=== PATIENT | female | born 1945 ===

== ENCOUNTER 2024-02-16 07:56 | Day surgery (SDC) | payer MEDICARE, BC ==
[2024-02-15 10:14] VITALS: BMI 38.9
[2024-02-16] MEDS ORDERED: Diazepam 5 MG TAB ONE (08:23)
[2024-02-16] MEDS ORDERED: Aspirin 325 MG TAB ONE (08:24)
[2024-02-16 08:41] VITALS: BP 181/81; TEMP 97.8
[2024-02-16] MEDS ORDERED: Verapamil 5 MG/2 ML VIAL ONE (09:53)
[2024-02-16] MEDS ORDERED: fentaNYL 50 mcg/mL 1 mL Vial ONE (09:53)
[2024-02-16] MEDS ORDERED: Lidocaine 1% (PF) 30 ML VIAL ONE (09:53)
[2024-02-16] MEDS ORDERED: Nitroglycerin 50 MG/250 ML BOT 250 ML ONE (09:53)
[2024-02-16] MEDS ORDERED: Heparin 10,000 UNITS/ 10 ML VIAL ONE (09:53)
[2024-02-16] MEDS ORDERED: Midazolam HCl 2 mg/2 ml Vial ONE (09:54)
[2024-02-16] MEDS ORDERED: Bivalirudin 250 MG VIAL ONE (10:06)
[2024-02-16] MEDS ORDERED: Atropine Sulfate 1 mg/1 ml Vial ONE (10:30)
[2024-02-16] MEDS ORDERED: Iopamidol 300 61% 100 ML VIAL FS ONE (12:56)
== END 2024-02-16 13:45 | disposition home or self-care (01) ==
LOC: CSHSDC 07:56
PROVIDERS: ATTEND Specialist
PROC: 4A023N7 Measurement of Cardiac Sampling and Pressure, Left Heart, Percutaneous Approach (ICD-10-PCS; principal; 2024-02-16)
PROC: B205YZZ Plain Radiography of Left Heart using Other Contrast (ICD-10-PCS; 2024-02-16)
DX: I25.83 Coronary atherosclerosis due to lipid rich plaque (principal); I25.118 Atherosclerotic heart disease of native coronary artery with other forms of angina pectoris; I10 Essential (primary) hypertension; E78.5 Hyperlipidemia, unspecified; I25.10 Atherosclerotic heart disease of native coronary artery without angina pectoris; E11.9 Type 2 diabetes mellitus without complications; E66.9 Obesity, unspecified; I35.0 Nonrheumatic aortic (valve) stenosis; I13.0 Hypertensive heart and chronic kidney disease with heart failure and stage 1 through stage 4 chronic kidney disease, or unspecified chronic kidney disease; N18.31 Chronic kidney disease, stage 3a; E11.22 Type 2 diabetes mellitus with diabetic chronic kidney disease; I50.20 Unspecified systolic (congestive) heart failure; I63.89 Other cerebral infarction; Z95.5 Presence of coronary angioplasty implant and graft; Z98.890 Other specified postprocedural states; Z86.79 Personal history of other diseases of the circulatory system; Z90.710 Acquired absence of both cervix and uterus; Z79.899 Other long term (current) drug therapy; Z79.82 Long term (current) use of aspirin; Z79.84 Long term (current) use of oral hypoglycemic drugs
CPT/HCPCS: 93458 ×2; J1644; J2001; J2250; J3010; 99152; J0461; J0583; Q9967